=== PATIENT | female | born 1960 | race Caucasian/White ===

== ENCOUNTER 2017-01-21 17:17 | Emergency (ER) | payer MEDICARE ==
[2017-01-21 18:16] LABS: CKMB 1.9 ng/mL (0-6.6); Hemoglobin 16.9 g/dL (12.0-16.0); Lymphocytes 23 % (21-51); MDiff Complete? YES; Mean Corpuscular HGB CONC 33.9 g/dL (32.0-36.0); Mean Corpuscular Hemoglobin 32.9 pg (27.0-31.0); Mean Corpuscular Volume 96.9 fl (81.0-99.0); Monocytes 5 % (0-10); Neutrophil 72 % (42-75); Platelet Count 299 thou/uL (130-400); RBC Distribution Width 12.8 % (11.5-14.5); Red Blood Cell (RBC) Count 5.13 mill/uL (4.20-5.40); Troponin I 0.013 ng/mL (< 0.028); White Blood Cell (WBC) Count 13.8 thou/uL (4.8-10.8)
[2017-01-21 18:17] LABS: ALT (SGPT) 20 U/L (0-55); AST (SGOT) 14 U/L (5-34); Albumin 4.1 g/dL (3.5-5.0); Alkaline Phosphatase 193 U/L (40-150); Anion Gap 17 mmol/L (10-20); BUN (Urea Nitrogen) 11 mg/dL (9.8-20.1); Bilirubin, Total 0.3 mg/dL (0.2-1.2); Calc. Creatinine Clearance 0 mL/min (70-130); Calcium 9.4 mg/dL (7.8-10.44); Carbon Dioxide 18 mmol/L (22-29); Chloride 101 mmol/L (98-107); Estimated GFR-MDRD 67; Globulin 3.3 g/dL (2.4-3.5); Glucose 110 mg/dL (70-105); Potassium 3.6 mmol/L (3.5-5.1); Protein, Total 7.4 g/dL (6.0-8.3); Sodium 132 mmol/L (136-145)
[2017-01-21 18:32] LABS: Amphetamine Not Detected (NotDetected); Barbiturates Screen Not Detected (NotDetected); Benzodiazepine Screen Detected (NotDetected); Cocaine Metabolite Screen Not Detected (NotDetected); Medtox Control Line Valid? VALID (VALID); Methadone Not Detected (NotDetected); Methamphetamine Not Detected (NotDetected); Opiate Screen Not Detected (NotDetected); Oxycodone Screen Not Detected (NotDetected); Phencyclidine (PCP) Not Detected (NotDetected); THC/Cannabinoid Screen Not Detected (NotDetected); Tricyclic Screen Not Detected (NotDetected)
--- NOTE | 2017-01-21 19:33 | RAD ---
PORTABLE CHEST 01/21/17 An AP portable film at 1743 is compared with a 10/13/15 study. The heart is normal in size and the lungs are clear. No infiltrate or effusion was seen. There is no vascular congestion or edema. There has apparently been a prior vertebroplasty in the mid thoracic region IMPRESSION: No acute thoracic finding. POS: HOME
== END 2017-01-21 19:58 | disposition left against medical advice (07) ==
LOC: BURERS 17:17
DX: Z53.21 Procedure and treatment not carried out due to patient leaving prior to being seen by health care provider (principal)
CPT/HCPCS: 71010; 80053; 80306; 82553; 84443; 84484; 85025; 85379; 93005; 94760

== ENCOUNTER 2017-07-24 11:19 | Outpatient (CLI) | payer MEDICARE ==
--- NOTE | 2017-07-24 21:05 | RAD ---
LUMBAR SPINE TWO VIEWS: Date: 07-24-17 Comparison: 06-15-17 study from [facility]. FINDINGS: The compression fracture of the superior endplate is again noted. The anterior height has reduced sl ightly since the prior exam. The overall height is about 15-20% of normal. There is no displacement or disc space narrowing. IMPRESSION: Very minimal increase in wedging of L1 since last month. POS: HOME
== END 2017-07-24 11:20 | disposition home or self-care (01) ==
LOC: BURRAD 11:19
PROVIDERS: ATTEND Neurological Surgery
DX: S32.001A Stable burst fracture of unspecified lumbar vertebra, initial encounter for closed fracture (principal)
CPT/HCPCS: 72100

== ENCOUNTER 2017-08-01 16:39 | Emergency (ER) | payer MEDICARE ==
[2017-08-01] MEDS ORDERED: Albuterol Sulfate 1.25 MG/3 ML NEB ONE (17:13)
[2017-08-01 17:20] LABS: ALT (SGPT) 13 U/L (8-55); AST (SGOT) 21 U/L (5-34); Albumin 3.6 g/dL (3.5-5.0); Alkaline Phosphatase 140 U/L (40-150); Anion Gap 21 mmol/L (10-20); BUN (Urea Nitrogen) 65 mg/dL (9.8-20.1); Bilirubin, Total 0.3 mg/dL (0.2-1.2); Calc. Creatinine Clearance 0 mL/min (70-130); Calcium 9.9 mg/dL (7.8-10.44); Carbon Dioxide 18 mmol/L (22-29); Chloride 94 mmol/L (98-107); Estimated GFR-MDRD 17; Glucose 85 mg/dL (70-105); Magnesium 2.5 mg/dL (1.6-2.6); Protein, Total 7.6 g/dL (6.0-8.3); Sodium 126 mmol/L (136-145)
[2017-08-01] MEDS ORDERED: Furosemide 40 MG/4 ML VIAL ONE (17:38)
[2017-08-01] MEDS ORDERED: Insulin Regular 300 UNITS/3 ML VIAL ONE (17:39)
[2017-08-01] MEDS ORDERED: Dextrose 50% Abboject 50 ML SYRINGE ONE (17:39)
== END 2017-08-01 20:43 ==
LOC: BURERS 16:39
DX: E87.5 Hyperkalemia (principal); F31.9 Bipolar disorder, unspecified; F41.9 Anxiety disorder, unspecified; E78.5 Hyperlipidemia, unspecified; I10 Essential (primary) hypertension; Z79.82 Long term (current) use of aspirin; Z79.899 Other long term (current) drug therapy; Z86.73 Personal history of transient ischemic attack (TIA), and cerebral infarction without residual deficits; Z87.891 Personal history of nicotine dependence
CPT/HCPCS: 36415; 36416; 80053; 83735; 93005; 94644; 96374; 96375; J1815; J1940